=== PATIENT | female | born 2005 | race Caucasian/White ===

== ENCOUNTER 2024-04-18 02:47 | Inpatient (IN) | payer MEDICAID, SELFPAY ==
[2024-04-18] VITALS (37 sets, daily range): BP systolic 100–134; BP diastolic 52–73; PULSE 57–90; RESP 14–18; TEMP 36.3–37.2; O2SAT 97–100; BMI 28.7
[2024-04-18] MEDS: Lactated Ringers 1,000 ML 50 ML IV (02:45)
[2024-04-18 02:59] LABS: Absolute Lymphocyte Count 1.79 X10^3/uL (0.83-4.51); Absolute Neutrophil Count 5.1 X10^3/uL (2.0-7.7); Basophil# 0.02 X10^3/uL; Basophil% 0.3 % (0-1); Eosinophil# 0.05 X10^3/uL; Eosinophils% 0.6 % (0-5); Hematocrit 35.1 % (37-47); Lymphocyte # 1.79 X10^3/ul (0.83-4.51); Lymphocyte % 23.2 % (19-41); Mean Corp Hgb Conc 34.2 g/dL (32-36); Mean Corpuscular Volume 90.7 fL (81-99); Mean Platelet Vol. 10.2 fl (6.2-12.0); Monocyte# 0.78 X10^3/uL; Monocyte% 10.1 % (0-10); NRBC Flagged by Analyzer 0 % (0-5); Neutrophil # 5.06 X10^3/uL (2.7-7.7); Neutrophil % 65.5 % (47-70); Platelet Count 181 K/mm3 (150-450); RBC Distribution Width CV 12.8 % (11.6-14.6); RBC Distribution Width SD 41.6 fl (35.1-43.9); Red Blood Count 3.87 M/mm3 (4.2-5.4); White Blood Count 7.7 K/mm3 (4.4-11.0)
[2024-04-18] MEDS: Oxytocin 15 Units/NS 250ml 15 UNITS/250 ML IV.SOLN 334 UNITS IV (03:30)
[2024-04-18 03:33] LABS: Syphilis Antibodies Non-reactive
--- NOTE | 2024-04-18 03:49 | HP.PCM.OB_ITS ---
HPI - General General Date of Admission: 04/18/24 HPI Narrative BELEN THEODORE, is a 19 F who presents at 37w2d in active labor. SROM around 0100 this am and presented to hospital. Maternal Data Information KARY Calculator Estimated Delivery Date Method Current WG Current Estimate 05/07/24 Manual 37w 2d PFSH PFSH Home Medications ?Medication ?Instructions ?Recorded ?Last Taken ?Type vit no.95-ferrous 1 tab PO DAILY nutrition 04/18/24 04/17/24 History fumarate 28 mg-folic acid 800 mcg tablet ( Formula) Allergy/AdvReac Type Severity Reaction Status Date / Time No Known Allergies Allergy Verified 04/18/24 03:50 NST FHR Rate Baby A Baseline: 135 Variability:: Moderate Accelerations:: 15 x 15 Decelerations:: Variable FHR Category:: Category II Uterine Activity:: Every 2-3 minutes, strong ROS Constitutional Constitutional: Reports systems reviewed and no addt'l complaints, except as documented; Denies headache(s) Eyes Eyes: Denies acute decrease in peripheral vision, blurry vision or change in vision ENT HEENT: Reports systems reviewed and no addt'l complaints, except as documented Cardiovascular Cardiovascular: Denies chest pain or dizziness Respiratory/Chest Respiratory/Chest: Denies cough, dyspnea, dyspnea on exertion, shortness of breath at rest or shortness of breath with exertion Gastrointestinal Gastrointestinal: Denies abdominal pain, diarrhea, nausea or vomiting Genitourinary Genitourinary: Denies abdominal discomfort Musculoskeletal Musculoskeletal: Denies limited range of motion Integumentary Integumentary: Reports systems reviewed and no addt'l complaints, except as documented Neurologic Neurologic: Reports systems reviewed and no addt'l complaints, except as documented Psychiatric Psychiatric: Reports systems reviewed and no addt'l complaints, except as documented Endocrine Endocrinology: Reports systems reviewed and no addt'l complaints, except as documented Hematologic/Lymphatic Hematologic/Lymphatic: Reports systems reviewed and no addt'l complaints, except as documented Allergic/Immunologic Allergic/Immunologic: Reports systems reviewed and no addt'l complaints, except as documented Vital Signs Vital Signs Vital Signs: 04/18/24 02:41 04/18/24 02:41 04/18/24 03:39 Pulse Rate 69 Blood Pressure 134/67 H BP Systolic 134 BP Diastolic 67 Pulse Ox 97 04/18/24 03:39 Pulse Rate 86 Blood Pressure BP Systolic BP Diastolic Pulse Ox Weight Weight: 156 lb Body Mass Index (BMI) 28.7 Physical Exam Const alert and oriented x3 General Appearance: cooperative Orientation / Consciousness: awake, oriented to person, oriented to place and oriented to time Exam Limitations: no limitations HEENT normocephalic Head and Scalp: normal to inspection, normocephalic and atraumatic Face and Sinus: normal facial exam Eyes General Eye: normal appearance of both eyes Neck full ROM Chest Chest: symmetrical chest wall rise Resp normal respiratory effort and normal air movement Auscultation: clear to auscultation bilaterally Cardio regular rate, regular rhythm, S1 normal heart sound, S2 normal heart sound, no murmurs, no rub, no gallops and no clicks GI normal to inspection, nondistended, normoactive bowel sounds and non-tender appearance of the vagina normal Bladder / Kidney Exam: no CVA tenderness Manual OB Exam: estimated gestational size appropriate, presentation cephalic, dilated 8, effaced 80, station -1 and other SROM, clear Back/Spine normal ROM Extremity normal to inspection and full ROM Skin no rashes or lesions noted Neuro oriented x3 and moves all extremities Sensorium / Orientation: awake, alert and oriented to person Labs Labs Labs: Antibody Screen Pending Hct 35.1 % (37-47) L Hgb 12.0 g/dL (12.0-15.0) Syphilis Total Ab Non-reactive GBS positive 1hr GCT normal RPR negative HepB negative Hep C negative HIV negative GC/CT negative Rubella Immune O positive Assessment & Plan (1) Active labor at term: (2) 37 weeks gestation of : (3) Language barrier: (4) GBS carrier: PLAN: Plan 1) Admit to labor and delivery 2) Routine labs 3) EFM 4) Requesting epidural, labor progressing quickly and unlikely able to get due to precipitous labor 5) [facility] and notified of above patient assessment and plan.
--- NOTE | 2024-04-18 03:50 | EX.PCM.OBRPT ---
Assessment & Plan (1) Vaginal delivery: (2) First degree perineal laceration: (3) Lactating mother: Maternal Data Information KARY Calculator Estimated Delivery Date Method Current WG Current Estimate 05/07/24 Manual 37w 2d Vaginal Delivery Maternal Presentation Maternal Presentation: Active Labor and Spontaneous Rupture of Membranes Operative Information Date of Procedure: 04/18/24 Pre-Operative Diagnosis: Active labor at term Post-Operative Diagnosis: , precipitous , first degree perineal laceration Surgery / Procedure Performed: Spontaneous Vaginal Delivery Type of Anesthesia: None Estimated Blood Loss: 200ml Time of Delivery: 03:24 Findings Description of Procedure: Progressed to complete with urge to push. Unmedicated. of viable male infant over intact perineum. APGARS 8,9 respectively. head delivered with body immediately forthcoming. Placed on maternal abdomen, strong cry. Mouth and nares suctioned for secretions. Pitocin started for active 3rd stage management. Cord doubly clamped and cut by FOB after pulsations ceased, delayed cord clamping. Placenta delivered intact via caballero, 3 vessel cord intact. Perineum inspected and revealed 1st degree perineal laceration. Repaired with 3.0 vicryl rapide and without anesthesia due to one figure of 8 suture. Fundus firm and hemostasis achieved. EBL 200ml. Mom and baby stable, planning to breastfeed. Family bonding well. notified of delivery. Presentation: Vertex and CUBA Amniotic Membrane Rupture Type: Spontaneous Amniotic Fluid Description: Clear Placental Delivery Description: Spontaneous Placenta Disposition: [facility] Cord Vessel Description: 3 Vessels Cord Entanglement: None A Gender: Male (1 minute): 8 (5 minute): 9 Delayed Cord Clamping: Yes Post Vaginal Delivery Medications Given After Delivery: IV Pitocin Episiotomy Description: None Laceration: Perineal Extension/lac and 1st degree Complication Complications: None
[2024-04-18] MEDS: Oxytocin 15 Units/NS 250ml 15 UNITS/250 ML IV.SOLN 83 UNITS IV (04:20)
[2024-04-18] MEDS: Acetaminophen 500 MG Tablet 1000 MG PO ×2 (04:50→20:07)
--- NOTE | 2024-04-18 05:02 | NURSING ---
utilized boxcar weigher for 2 hours and 7 minutes #[id number]
--- NOTE | 2024-04-18 12:08 | NURSING ---
[employer], ID #[id number] used for feeding education and IBCLC round. See special education preschool teacher intervention on worklist.
--- NOTE | 2024-04-18 19:53 | NURSING ---
Attempted to use comic book designer ipad, chose language and waited on hold for comic book designer for approx 5-10 minutes. Pt wanted to use her own phone for interpretation at this time.
[2024-04-19 04:15] VITALS: BP 93/64; PULSE 65; RESP 16; TEMP 36.2; O2SAT 96
[2024-04-19 05:59] LABS: Absolute Lymphocyte Count 1.81 X10^3/uL (0.83-4.51); Absolute Neutrophil Count 6.8 X10^3/uL (2.0-7.7); Basophil# 0.04 X10^3/uL; Basophil% 0.4 % (0-1); Eosinophil# 0.09 X10^3/uL; Hematocrit 32.9 % (37-47); Hemoglobin 10.9 g/dL (12.0-15.0); Lymphocyte # 1.81 X10^3/ul (0.83-4.51); Lymphocyte % 19.3 % (19-41); Mean Corp Hgb Conc 33.1 g/dL (32-36); Mean Corpuscular Hgb 30.6 pg (27.0-32.0); Mean Corpuscular Volume 92.4 fL (81-99); Mean Platelet Vol. 10.2 fl (6.2-12.0); Monocyte# 0.66 X10^3/uL; NRBC Flagged by Analyzer 0 % (0-5); Neutrophil # 6.75 X10^3/uL (2.7-7.7); Neutrophil % 71.9 % (47-70); Platelet Count 146 K/mm3 (150-450); RBC Distribution Width CV 12.9 % (11.6-14.6); RBC Distribution Width SD 43.6 fl (35.1-43.9); Red Blood Count 3.56 M/mm3 (4.2-5.4); White Blood Count 9.4 K/mm3 (4.4-11.0)
--- NOTE | 2024-04-19 09:30 | PCM.DC.SUM ---
Providers Date of Admission: 04/18/24 Reason For Visit: VAGINAL DEILVERY Diagnosis Discharge Diagnosis (1) Vaginal delivery: Status: Acute Code(s): O80 - Encounter for full-term uncomplicated delivery (2) First degree perineal laceration: Status: Acute Code(s): O70.0 - First degree perineal laceration during delivery (3) Lactating mother: Status: Acute Code(s): Z39.1 - Encounter for care and examination of lactating mother Medications at Discharge Home Medications vit no.95-ferrous fumarate 28 mg-folic acid 800 mcg tablet ( Formula) 1 tab PO DAILY nutrition 04/18/24 Hospital Course Operations None Procedures None Summary of Care Provided Minutes Spent on Discharge: 24 Hospital Course: 19-year-old Mando parous patient admitted at term who had spontaneous labor with a vaginal delivery on 04/18/2024. Today she denies any headache or visual changes. Pain is well-controlled. Average lochia. Tolerating regular diet. Desires discharge home. day #1 patient is doing well desires discharge home. is breast-feeding and doing well. Discharge home with routine instructions and follow-up. Physical Exam Const alert and no apparent distress Narrative: Fundus firm, below umbilicus. Weight / BMI Weight Weight: 70.76 kg Body Mass Index (BMI) 28.7 ABG / Lab / Microbiology Data 04/19/24 05:40 Laboratory: Laboratory Results - last 24 hr 04/19/24 05:40: WBC 9.4, RBC 3.56 L, Hgb 10.9 L, Hct 32.9 L, MCV 92.4, MCH 30.6, MCHC 33.1, RDW Std Deviation 43.6, RDW Coeff of Perla 12.9, Plt Count 146 L, MPV 10.2, Immature Gran % (Auto) 0.400, Neut % (Auto) 71.9 H, Lymph % (Auto) 19.3, Edmonson % (Auto) 7.0, Eos % (Auto) 1.0, Baso % (Auto) 0.4, Absolute Neuts (auto) 6.8, Absolute Lymphs (auto) 1.81, Nucleated RBC % 0 D/C Instructions Discharge Diet: No restrictions May resume sexual activity in: 6 weeks Call your doctor if your incision/area has: Continuous Slow Oozing, Sudden Increased Bleeding, Foul Smelling Discharge and Swelling at the incision site Call your doctor if you observe: Fever of 101 or Higher and Inability to urinate Please Follow Up With: Rissa Tapia CNM When: Follow up with our office [id number] and 6 weeks or as needed. [phone] Call or send a [employer] message to schedule a follow up this week and in 6 weeks Meaningful Use Info Meaningful Use Meaningful Use Diagnoses (Choose all that apply): None applicable Ischemic Stroke Statin Dosing Therapy Reference: STATIN DOSE THERAPY REFERENCE: * Patients > 75 years receive moderate or high dose statin therapy. * Patients 75 years or YOUNGER should receive HIGH intensity statin dose unless contraindicated. You will be required to document reason for non-treatment if statin daily dose does not meet guidelines. HIGH DOSE STATIN THERAPY DAILY Atorvastatin > than or = to 40 mg Rosuvastatin > than or = to 20 mg Amlodipine + Atorvastatin > than or = to 2.5/40 mg Ezetimibe + Simvastatin 10/80 mg Simvastatin 80mg Discharge Plan Admission Admit Date/Time: 04/18/24 02:47 Primary Reason for Your Visit: Vaginal delivery Attending Provider: Rissa Tapia Discharge Orders/Prescriptions Prescriptions: No Action PNV cmb#95-ferrous fumarate-FA [ Formula] 28 mg iron- 800 mcg tablet 1 tab PO DAILY Disposition Disposition (needs filled in before D/C Order can be placed): Home, Self Care
--- NOTE | 2024-04-19 12:17 | NURSING ---
Dr. Abbott (test preparer) spoke with patient about concern for resources and did not think it was necessary for the foster care social worker to come speak with patient. The patient and are financially stable and have medical insurance. Social work consult dc.
[2024-04-19] MEDS: Acetaminophen 500 MG Tablet 1000 MG PO (12:54)
[2024-04-19 14:07] VITALS: BP 98/66; PULSE 56; RESP 16; TEMP 37.3
== END 2024-04-19 15:13 | disposition home or self-care (01) | DRG 560 ==
PROVIDERS: Admitting Provider Advanced Practice Midwife; Visit Provider Advanced Practice Midwife
DX: O62.3 Precipitate labor (principal); Z37.0 Single live birth; O70.0 First degree perineal laceration during delivery; O99.824 Streptococcus B carrier state complicating childbirth; Z3A.37 37 weeks gestation of pregnancy
CPT/HCPCS: 59025; 59050; 85025; 86780; 86850; 86900; 86901; 99221; J7120; G0378